=== PATIENT | male | born 1955 | race Caucasian/White ===

== ENCOUNTER → 2016-09-30 | Outpatient (CLI) | payer OTHER | LOC: MRI 09:41 | DX: M47.816 Spondylosis without myelopathy or radiculopathy, lumbar region (principal); M48.06 Spinal stenosis, lumbar region; M54.5 Low back pain ==

== ENCOUNTER → 2018-12-11 | Outpatient (CLI) | payer BC, OTHER | LOC: CAT 07:19 | DX: K80.20 Calculus of gallbladder without cholecystitis without obstruction (principal); K57.30 Diverticulosis of large intestine without perforation or abscess without bleeding; K40.20 Bilateral inguinal hernia, without obstruction or gangrene, not specified as recurrent; K76.0 Fatty (change of) liver, not elsewhere classified; J84.10 Pulmonary fibrosis, unspecified; D18.00 Hemangioma unspecified site; I70.0 Atherosclerosis of aorta; M47.817 Spondylosis without myelopathy or radiculopathy, lumbosacral region; M43.17 Spondylolisthesis, lumbosacral region ==

== ENCOUNTER 2018-12-27 05:33 | Observation (INO) | payer BC, OTHER ==
[~2018-12-27] VITALS: Ht 177.8 cm; Wt 124.7 kg
--- NOTE | ~2018-12-27 | H ---
[facility] [place] [address] HISTORY AND PHYSICAL Name: ABDIEL BALTAZAR Room #: 150-3 [facility]#: [id number] Admission: 12/27/18 ������������������ Attend Phys: Isaiah Brink MD Discharge: ������������������ Date of : 51 Report #: [id number] THIS REPORT FOR: //name// CC: Isaiah Araya MD DATE OF SERVICE: 12/27/2018 PREOPERATIVE DIAGNOSIS: Cholecystitis with cholelithiasis. HISTORY OF PRESENT ILLNESS: The patient is a 63-year-old who has been followed recently by Dr. Araya and he has been found to have liver function elevations. His SGPT has doubled. The patient does complain of pain, but it is on the left side of his abdomen. The pain does come on after eating. The patient recently had episode of pain after eating baked beans which contained mota and molasses. The patient has had history of indigestion for years, been taking omeprazole. In 2013, the patient had an EGD, which showed an ulcer. The patient does complain being full feeling and bloated, history of gas. The patient does have difficulty with spicy and greasy food. He does get diarrhea depending on the type of food that he eats. The patient had a CT performed and his liver did show moderate diffuse hepatic steatosis and the patient does have numerous gallstones. Small bilateral inguinal hernias. Fat containing. He is here for gallbladder surgery. PAST MEDICAL HISTORY: The patient has a history of type 2 diabetes and TIA in 2017. For a brief period of time, he lost the use of his right leg. The patient has hypertension, arthritis. The patient has back spondylolisthesis. MEDICATIONS: Amlodipine 10 mg, aspirin 81 mg, Lipitor 40 mg, TriCor 145 mg, Flonase, metformin, insulin, Prilosec 20 mg, Cialis 5 mg. ALLERGIES: THE PATIENT HAS ALLERGIES TO CODEINE CAUSES GI UPSET. CELEBREX, VIOXX GI INTOLERANCE. PAST SURGICAL HISTORY: Right inguinal hernia repair 1990, hemorrhoidectomy 1990, and umbilical hernia repair in 1997. The patient has had injury of the Achilles tendon, left wrist fracture. FAMILY HISTORY: There is cancer in the family with his parents. They both were smokers. 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 The patient does not smoke. He smoked a little bit when he was much younger. He drink alcohol seldom. REVIEW OF SYSTEMS: The patient has L5 slip disk. The patient has had a history [facility] [address] [place] [address] HISTORY AND PHYSICAL Name: ABDIEL BALTAZAR Room #: 150-3 [facility]..#: [id number] Admission: 12/27/18 ������������������ Attend Phys: Isaiah Brink MD Discharge: ������������������ Date of : 51 Report #: [id number] of bronchitis. The patient denies any chest pain, shortness of breath, muscle weakness or numbness. PHYSICAL EXAMINATION: GENERAL: The patient is moderately obese male. He has stated weight of 275. He is alert and oriented, not in acute distress. HEENT: Sclerae are nonicteric. NECK: Soft and supple, no masses. LUNGS: Clear to auscultation. HEART: Regular rate and rhythm. No murmur or gallop. ABDOMEN: Soft with tenderness in the right upper quadrant. No mass, guarding or rigidity. EXTREMITIES: No cyanosis, clubbing or edema. IMPRESSION: The patient is a 63-year-old who has had abdominal pain, which is on the left side after eating. I believe this is gallbladder related referred pain. It is atypical for it to be on the left side. He does have issues with greasy, spicy foods. The patient does have numerous stones in his gallbladder. Liver looks fatty. The patient's liver function tests also has increased. The pattern is consistent with biliary tract disease. We will see how his liver looks, possibly liver biopsy if there are some changes in the liver. I do recommend that his gallbladder be removed. Laparoscopic cholecystectomy was discussed and recommended. Procedure risks involved including bleeding, infection, common bile duct injury, bile leak was discussed. The patient understands the procedure and wished to proceed. ��������������������������������������������� ���������������������������������������� By: ��������������������������������������������� 1044 1127 Isaiah Brink MD /nt
--- NOTE | ~2018-12-27 | EKG ---
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: JUSTINNG : 1955 Requested By: Isaiah Brink Order Number: [id number] MD: Measurements Intervals [place] Rate: 81 P: 77 W[place]: 110 QRS: 53 QRSD: 78 T: 75 QT: 352 QTc: 409 Interpretive Statements Sinus rhythm Borderline short [place] interval Borderline T wave abnormalities Minimal ST elevation, anterior leads Compared to ECG 09/15/2005 21:03:16 T-wave abnormality now present ST (T wave) deviation now present Sinus bradycardia no longer present [email or web address] ��������������������������������������������� ���������������������������������������� By: ��������������������������������������������� 0729 0729 Epiphany Epiphany, /EPI
--- NOTE | ~2018-12-27 | HC ---
[facility] [place] [address] CONSULTATION Name: ABDIEL BALTAZAR Room #: 359-P [facility] M.R.#: [id number] Admission: 12/27/18 ������������������ Attend Phys: Isaiah Brink MD Discharge: ������������������ Date of : 53 Report #: [id number] THIS REPORT FOR: //name// CC: Isaiah Araya HISTORY OF PRESENT ILLNESS: The patient is a 63-year-old male, I am asked to see postoperatively cholecystectomy. He does not have documented coronary artery disease. He tells me I did a stress test on him approximately 10 years ago. I do not have that record. He has some subtle ST abnormalities postoperatively. This was noted quite some hours ago and 3 or 4 EKGs looked essentially the same with some subtle ST changes in the anterior and lateral leads. There are no significant reciprocal changes. He has no chest pain. He has not had any anginal type symptoms. He is limited in his exercise tolerance because of radiculopathy and he is disabled because of the low back pain and radiculopathy. His home medications have been metformin recently, diabetic couple of years ago; amlodipine; lisinopril; Lipitor 40; TriCor; insulin; Cialis; Prilosec. Previously, he had been on atorvastatin for probably 20 years, he states that was stopped due to his liver function abnormalities. His SGPT had doubled and CT scan showed an incidental finding some what appeared to be a necrotic or certainly diseased gallbladder. Subsequently, it was taken out uneventfully today by Dr. Isaiah Brink. He denies any chest pain tonight. He feels well, he is hemodynamically stable. His laboratory work is relatively unremarkable except for the SGPT. Troponin was not drawn. PAST MEDICAL HISTORY: Positive for the recent cholecystectomy today, hypertension, hypercholesterolemia, some obesity, diabetes for few years, TIA in 2017 without residual, some erectile issues, low back radiculopathy and spondylolisthesis, DJD, hemorrhoidectomy, umbilical hernia repair, still has an umbilical hernia and left wrist fracture. SOCIAL HISTORY: He is . He has stepchildren. 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 He is disabled because of the back. Minimal alcohol, no tobacco. FAMILY HISTORY: Brother had a stent few years ago that was 3 years younger than him. Otherwise, his parents from cancer. They were heavy smokers. He has never smoked. REVIEW OF SYSTEMS: Negative except for some nocturia and some mild erectile issues and as stated above. PHYSICAL EXAMINATION: GENERAL: Pleasant, alert. He denies any real exertional pain except for some abdominal distension due to bowel issues postoperatively. VITAL SIGNS: Blood pressure 140/70, pulse 60s and regular. HEENT: Eyes reveal xanthelasmas. Pharynx is clear. NECK: Shows preserved upstrokes without JVD or bruits. [facility] [address] [place] [address] CONSULTATION Name: ABDIEL BALTAZAR Room #: 359-P [facility]..#: [id number] Admission: 12/27/18 ������������������ Attend Phys: Isaiah Brink MD Discharge: ������������������ Date of : 53 Report #: [id number] LUNGS: Clear anteriorly. CARDIAC: Regular rate and rhythm, S1, S2 distant. ABDOMEN: Distended and slightly tympanitic. There are no significant bowel sounds noted, but there is no rebound. He is not particularly tender, slightly more in the right upper quadrant. EXTREMITIES: Reveal trace of edema. Distal pulses diminished. NEUROLOGIC: Nonfocal. SKIN: Warm and dry without xanthoma or ulcer, mild venous stasis changes are noted. MUSCULOSKELETAL: Generalized arthritic changes with some valgus deformity of the knees. ASSESSMENT: 1. Abnormal EKG without symptoms. No history of documented coronary artery disease. 2. Hypertension. 3. Hypercholesterolemia. 4. Diabetes. 5. Obesity. 6. Status post cholecystectomy. 7. Severe chronic low back pain and radiculopathy. 8. Disabled. RECOMMENDATIONS AND PLAN: Repeat EKG in the morning. We will check troponin in the morning, although there are no changes on this EKG and he is asymptomatic. Certainly, would not be recommending any intervention at this time. He is mostly uncomfortable from his abdominal distention. It would be reasonable we will check lipids and troponin, EKG and echo. I suspect an outpatient stress testing would be indicated here. We will continue to follow with you. He does have this subtly abnormal EKG, but I do not perceive that this is representing a myocardial infarction. Again, the patient is completely asymptomatic and not had any anginal-type complaints, but we do have some risk factors. Thank you for allowing me to assist in the care of this patient. ��������������������������������������������� ���������������������������������������� By: ��������������������������������������������� 2236 0013 Joaquin Figueredo MD, FACC /nt
--- NOTE | ~2018-12-27 | O ---
[facility] [place] [address] OPERATIVE REPORT Name: ABDIEL BALTAZAR Room #: 359-P [facility]#: [id number] Admission: 12/27/18 ������������������ Attend Phys: Isaiah Brink MD Discharge: ������������������ Date of : 53 Report #: [id number] THIS REPORT FOR: //name// CC: Isaiah Araya MD DATE OF SERVICE: 12/27/2018 PREOPERATIVE DIAGNOSIS: Cholecystitis with cholelithiasis, elevated liver function test. POSTOPERATIVE DIAGNOSIS: Cholecystitis with cholelithiasis, elevated liver function test. PROCEDURES PERFORMED: 1. Laparoscopic cholecystectomy with intraoperative cholangiogram. 2. Core needle biopsy of liver. ANESTHESIA: General. SURGEON: Isaiah Brink M.D. COMPLICATIONS: None. ESTIMATED BLOOD LOSS: 5 mL. PROCEDURE NOTE: With the patient under general anesthesia, IV antibiotic was administered. Abdomen was prepped and draped in sterile fashion. The patient had a previous umbilical hernia repair with mesh. There was thinning over this area. I decided to go above this area. A transverse incision was made above the umbilicus. Fascia was identified. Fascia was grasped with hemostats. Fascia was then opened. A 0 Vicryl suture was placed on the fascia. Veress needle was then placed through the peritoneum. Abdominal cavity was insufflated with CO2. After creating pneumoperitoneum, 11 mm trocar was placed into the pneumoperitoneum. No harm to underlying tissue. There was omental adhesion just superior to where the trocar goes in. This was fatty adhesion. There was intestine that was beneath the fatty tissue. Gallbladder was identified. Two 5 mm trocars were placed in the right upper quadrant, another 5 mm trocar was placed in right epigastrium. The gallbladder was lifted over the liver. The gallbladder was elongated. Peritoneum was then dissected free over the cystic duct. The cystic duct was isolated. Common duct was not able to be visualized due to the fat in this area. The liver did have a fatty appearance. No scarring identified. The cystic duct was isolated. A clip was placed in junction of cystic duct to the gallbladder. There appears to have a stone in the proximal neck of the gallbladder. Opening was made in the cystic duct. [facility] [address] [place] [address] OPERATIVE REPORT Name: ABDIEL BALTAZAR Room #: 359-P [facility]..#: [id number] Admission: 12/27/18 ������������������ Attend Phys: Isaiah Brink MD Discharge: ������������������ Date of : 53 Report #: [id number] Cholangiogram catheter was placed. Fluoroscopic cholangiogram was obtained. Common bile duct filled out well. I did not see any filling defect. The cholangiogram catheter was identified in the cystic duct. No harm to the common duct. Catheter was then removed. The proximal cystic duct was then clipped x 2 and then divided. Cystic artery was then found adjacent to this. This was isolated, clipped x 2 proximally and 1 distally and then divided. The gallbladder was then dissected from the liver bed without difficulty. The gallbladder was placed in a specimen bag, retrieved through the 11 mm port site. The gallbladder came out without difficulty. The gallbladder was opened off the field. The gallbladder contained very thick sludgy liquid along with large amount of small blackish-looking stones. The liver bed was checked, hemostasis obtained. Clips were intact. Irrigation was performed. Irrigation was aspirated out. I then decided to go ahead and do a liver biopsy since she does have elevated liver function test and there is fatty changes. This is to rule out inflammation. An 18-gauge Monopty biopsy gun was used. Three separate cores obtained. The liver course were placed on Telfa, then placed in formalin. Surgicel was placed over the biopsy site. Hemostasis obtained with pressure. No bleeding was identified. The CO2 was then evacuated. Trocars were removed. The fascia defect above the umbilicus was closed with 0 PDS, [id number] x 2. I did look with a 5 mm scope at the umbilical area. The fascia was attenuated. A little bit of the mesh was identified, just a little bit of it was visible. There was no adhesion. There was thinning of the wall. No true hernia defect was present. Skin was irrigated. Skin was then closed with 5-0 PDS. Steri-Strip, Band-Aids applied. The patient was awakened and taken to recovery room, tolerated the procedure well. ��������������������������������������������� ���������������������������������������� By: ��������������������������������������������� 31 57 Isaiah Brink MD /desiree
[~2018-12-27 05:33] MED LIST: AMLODIPINE BESY10 MG PO; ASPIR 8181 MG PO; CLARITIN10 M2 PO; FLONASE 0.05%50 MCG NASAL; GLYBURIDE-METF1 EAC1 PO; HUMALOG100 UNIT/1 SUBQ; LANTUS SUBQ; LISINOPRIL20 MG PO; OMEPRAZOLE 20 M20 M1 PO; TADALAFIL5 M1 PO; WIXELA 250-501 EACH INH
[2018-12-27 12:46] LABS: HEMATOCRIT 44.9 % (42.0-52.0); HEMOGLOBIN 15.1 gm/dL (14.0-18.0)
[2018-12-27 12:54] LABS: CALCIUM 8.5 mg/dL (8.5-10.1); CREATININE 1.1 mg/dL (0.7-1.3); POTASSIUM 4.6 mmol/L (3.5-5.1)
[2018-12-27 13:00] VITALS: BP 160/84
[2018-12-27 13:00] LABS: ALBUMIN 3.5 g/dL (3.4-5.0); TOTAL BILIRUBIN 0.6 mg/dL (<0.1-1.0); TOTAL PROTEIN 6.7 g/dL (6.4-8.2)
[2018-12-27 18:26] VITALS: BP 146/70
[2018-12-28 04:45] VITALS: BP 149/91
[2018-12-28 06:47] LABS: HEMATOCRIT 42.4 % (42.0-52.0); HEMOGLOBIN 14.2 gm/dL (14.0-18.0); MCH 28.5 pg (26.0-34.0); MCHC 33.4 g/dL (28.0-37.0); MCV 85.2 fL (80.0-100.0); RBC 4.98 mil/uL (4.50-6.00); RDW 14.1 % (10.5-14.5); WBC 7.4 thou/uL (4.0-11.0)
[2018-12-28 07:01] LABS: ANION GAP 7 mmol/L (7-16); BUN 10 mg/dL (7-18); CALCIUM 7.8 mg/dL (8.5-10.1); CHLORIDE 107 mmol/L (98-107); CHOLESTEROL 199 mg/dL (<200); CO2 28 mmol/L (21-32); CREATININE 1.1 mg/dL (0.7-1.3); GLUCOSE 171 mg/dL (74-106); HDL CHOLESTEROL 29 mg/dL (>40); LDL CHOLESTEROL 138 mg/dL (<100); POTASSIUM 4.1 mmol/L (3.5-5.1); SODIUM 142 mmol/L (136-145); TC:HDL 6.9 Ratio (Not establshd); TRIGLYCERIDE 163 mg/dL (<150); TROPONIN-I <0.06 ng/mL (<0.06); VLDL 33 mg/dL (<40)
[2018-12-28 07:34] VITALS: BP 143/90
--- NOTE | 2018-12-28 07:54 | EKG ---
[place] [address] [facility] [address] [place] [address] ELECTROCARDIOGRAM REPORT Name: ABDIEL BALTAZAR Room #: 359-P 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1955 Requested By: Isaiah Brink Order Number: [id number] MD: Fernando Carlos Measurements Intervals [place] Rate: 82 P: 0 UT: 103 QRS: 51 QRSD: 80 T: 56 QT: 362 QTc: 423 Interpretive Statements Sinus rhythm Short UT interval ST elevation, consider early repolarization Compared to ECG 09/15/2005 21:03:16 Short [place] interval now present ST segment elevation is persistent Electronically Signed On 12-28-2018 7:54:09 CDT by Fernando Carlos [email or web address] ��������������������������������������������� <ELECTRONICALLY SIGNED> ���������������������������������������� By: Fernando Carlos MD, [facility] ��������������������������������������������� 12/28/18 0754 1302 130 Fernando Carlos MD, [facility] /EPI
--- NOTE | 2018-12-28 07:55 | EKG ---
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1955 Requested By: Isaiah Brink Order Number: [id number] MD: Fernando Carlos Measurements Intervals [place] Rate: 80 P: 126 [place]: 110 QRS: 53 QRSD: 78 T: 43 QT: 361 QTc: 417 Interpretive Statements Sinus rhythm Borderline short [place] interval ST elevation, anterolateral leads Compared to ECG 09/15/2005 21:03:16 no significant change was found Electronically Signed On 12-28-2018 7:55:31 CDT by Fernando Carlos [email or web address] ��������������������������������������������� <ELECTRONICALLY SIGNED> ���������������������������������������� By: Fernando Carlos MD, [facility] ��������������������������������������������� 12/28/18 0755 1310 1310 Fernando Carlos MD, [facility] /EPI
--- NOTE | 2018-12-28 07:57 | EKG ---
[address] [employer] [place] [address] ELECTROCARDIOGRAM REPORT Name: ABDIEL BALTAZAR Room #: 359-P [facility].#: [id number] ������������������ Admission: 12/27/18 ������������������ Attend Phys: Isaiah Brink MD Discharge: ������������������ Date of : 51 Report #: [id number] ����������������������������������������������������������������� [id number] THIS REPORT FOR: //name// [facility] Test Date: 2018-12-27 Test Time: 15:48:29 Pat Name: ABDIEL BALTAZAR Department: Room: [facility] Gender: M Placement Assistant: Jozef WIN : 1955 Requested By: Isaiah Brink Order Number: [id number] MD: Fernando Carlos Measurements Intervals [place] Rate: 67 P: 0 CO: 115 QRS: 58 QRSD: 84 T: 36 QT: 385 QTc: 407 Interpretive Statements Sinus rhythm Borderline short [place] interval ST elevation, anterolateral leads Compared to ECG 09/15/2005 21:03:16 No significant change was found Electronically Signed On 12-28-2018 7:56:58 CDT by Fernando Carlos [email or web address] ��������������������������������������������� <ELECTRONICALLY SIGNED> ���������������������������������������� By: Fernando Carlos MD, [facility] ��������������������������������������������� 12/28/18 0756 1548 1548 Fernando Carlos MD, [facility] /EPI
[2018-12-28 08:13] VITALS: BP 153/88
--- NOTE | 2018-12-28 08:29 | EKG ---
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 : 1955 Requested By: Joaquin Figueredo Order Number: [id number] MD: Fernando Carlos Measurements Intervals [place] Rate: 77 P: 113 DC: 119 QRS: 59 QRSD: 82 T: 33 QT: 361 QTc: 409 Interpretive Statements Sinus rhythm ST segment elevation, anterior lateral leads Compared to ECG 09/15/2005 21:03:16 No significant change was found Electronically Signed On 12-28-2018 8:29:12 CDT by Fernando Carlos [email or web address] ��������������������������������������������� <ELECTRONICALLY SIGNED> ���������������������������������������� By: Fernando Carlos MD, [facility] ��������������������������������������������� 12/28/18 0829 44 44 Fernando Carlos MD, [facility] /EPI
--- NOTE | 2018-12-28 08:37 | EKG ---
[place] [address] [address] [facility] [address] [employer] [address] ELECTROCARDIOGRAM REPORT Name: ABDIEL BALTAZAR Room #: 359-P 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1955 Requested By: Joaquin Figueredo Order Number: [id number] MD: Fernando Carlos Measurements Intervals [place] Rate: 81 P: 77 [place]: 110 QRS: 53 QRSD: 78 T: 75 QT: 352 QTc: 409 Interpretive Statements Sinus rhythm Borderline short [place] interval Borderline T wave abnormalities Minimal ST elevation, anterior leads Compared to ECG 09/15/2005 21:03:16 No significant change was found Electronically Signed On 12-28-2018 8:37:07 CDT by Fernando Carlos [email or web address] ��������������������������������������������� <ELECTRONICALLY SIGNED> ���������������������������������������� By: Fernando Carlos MD, [facility] ��������������������������������������������� 12/28/18 0837 0729 8 Fernando Carlos MD, [facility] /EPI
[2018-12-28 11:28] VITALS: BP 141/77
--- NOTE | 2018-12-28 12:06 | 2DMMODE ---
[facility] [place] [address] 2 D/M-MODE ECHOCARDIOGRAM Name: ABDIEL BALTAZAR Room #: 359-P ADM IN ..#: [id number] ������������� Admission: 12/27/18 ������������� Attend Phys: Isaiah Brink MD Discharge: ��� ������������� ��� Date of : 51 Date of Service: 12/28/18 1206 �� Report #: [id number] �������� ��������������������������������������������[id number] THIS REPORT FOR: //name// APPROVED REPORT Study performed: 12/28/2018 08:36:28 EXAM: Comprehensive 2D, Doppler, and color-flow Echocardiogram Patient Location: Bedside Room #: 359 Status: routine BSA: 2.39 HR: 86 bpm BP: 153/88 mmHg Rhythm: NSR Other Information Study Quality: Adequate Risk Factors: Cardiac Risk Factors: HTN, Hyperlipidemia, DM Indications EKG Changes 2D Dimensions IVSd: 14.05 (7-11mm) LVOT Diam: 20.00 (18-24mm) LVDd: 42.43 mm PWd: 11.81 (7-11mm) Ascending Ao: 31.96 (22-36mm) LVDs: 26.48 (25-40mm) Aortic Root: 30.26 mm LV Single Plane 4CH: 56.64 % LV Single Plane 2CH: 51.66 % Biplane EF: 52.8 % Volumes Left Atrial Volume (Systole) Single Plane 4CH: 59.81 mL Single Plane 2CH: 73.22 mL LA ESV Index: 30.00 mL/m2 Aortic Valve AoV Peak Richard.: 1.57 m/s AO Peak Gr.: 9.87 mmHg LVOT Max P.36 mmHg LVOT Max V: 1.04 m/s DC Vmax: 2.06 cm2 [facility] [place] [address] 2 D/M-MODE ECHOCARDIOGRAM Name: ABDIEL BALTAZAR Room #: 359-P [facility].#: [id number] ������������� Admission: 12/27/18 ������������� Attend Phys: Isaiah Brink MD Discharge: ��� ������������� ��� Date of : 51 Date of Service: 12/28/18 1206 �� Report #: [id number] �������� ��������������������������������������������[id number] Mitral Valve E/A Ratio: 1.1 MV Decel. Time: 224.32 ms MV E Max Richard.: 1.08 m/s MV A Richard.: 1.01 m/s MV PHT: 65.05 ms IVRT: 93.43 ms TDI E/Lateral E': 21.60 E/Medial E': 15.43 Medial E' Richard.: 0.07 m/s Lateral E' Richard.: 0.05 m/s Pulmonary Valve PV Peak Richard.: 0.82 m/s PV Peak Gr.: 2.67 mmHg Pulmonary Vein P Vein S: 0.80 m/s P Vein A: 0.32 m/s P Vein D: 0.37 m/s P Vein A Dur.: 96.9 msec P Vein S/D Ratio: 2.16 Tricuspid Valve RAP Estimate: 10.00 mmHg Left Ventricle The left ventricle is normal size. There is normal LV segmental wall motion. Mild concentric left ventricular hypertrophy. The left ventricular systolic function is normal. The left ventricular ejection fraction is within the normal range. LVEF is 55-60%. The left ventricular diastolic function is normal. Right Ventricle The right ventricle is normal size. The right ventricular systolic function is normal. Atria The left atrium size is normal. The right atrium size is normal. Aortic Valve The Aortic valve is sclerotic. No aortic regurgitation is present. There is no aortic valvular stenosis. Mitral Valve There is mitral annular calcification. Trace mitral regurgitation. No [facility] [address] [place] [id number] 2 D/M-MODE ECHOCARDIOGRAM Name: ABDIEL BALTAZAR Room #: 359-P [facility]#: [id number] ������������� Admission: 12/27/18 ������������� Attend Phys: Isaiah Brink MD Discharge: ��� ������������� ��� Date of : 51 Date of Service: 12/28/18 1206 �� Report #: [id number] �������� ��������������������������������������������[id number] evidence of mitral valve stenosis. Tricuspid Valve The tricuspid valve is normal in structure. There is no tricuspid valve regurgitation noted. Pulmonic Valve The pulmonary valve is normal in structure. Trace pulmonic regurgitation. Great Vessels The aortic root is normal in size. IVC is dilated and collapses >50% with inspiration. Pericardium There is no pericardial effusion. <Conclusion> The left ventricle is normal size. LVEF is 55-60%. The Aortic valve is sclerotic. There is mitral annular calcification. Trace mitral regurgitation. The tricuspid valve is normal in structure. The pulmonary valve is normal in structure. Trace pulmonic regurgitation. There is no pericardial effusion. ��������������������������������������������� <ELECTRONICALLY SIGNED> ���������������������������������������� By: Arnie Cuenca MD ��������������������������������������������� 12/28/18 1206 120 05 Arnie Cuenca MD /INF
[2018-12-28] MEDS ORDERED: HYDROCODON-ACE1 EAC7 PO (13:21)
[2018-12-28 13:48] VITALS: BP 141/77
--- NOTE | 2018-12-29 12:05 | PATH ---
[facility] [place] [address] PATHOLOGY RPT PROCEDURE Name: ABDIEL BALTAZAR Room #: 359-P [facility] Henri Diamond#: [id number] ������������������ Admission: 12/27/18 ������������������ Date of : 51 Discharge: 12/28/18 Report #: [id number] Path Case #: [id number] [facility] Accession Number: [id number] . 01 Material submitted: . PART A: gallbladder - GALLBLADDER PART B: liver - LIVER BIOPSY (ELEVATED LFT'S) . 01 Clinical history: . Biopsy, liver (closed), cholecystitis . 02 Diagnosis: A. Gallbladder, cholecystectomy: - Mild chronic cholecystitis. - Cholelithiasis. . B. Liver, needle core biopsy: - Steatohepatitis, mild activity and mild periportal fibrosis. - Nicholas-Doug system, 2/4 grade and 1-2/4 staging. - NAFLD activity score 3/8. - See comment. . 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 02 Comment: Examination shows a liver needle core biopsy tissue with mild mixed macro and microvesicular steatosis with mild hepatocyte ballooning as well as rare poorly-formed Rylee hyaline. Minimal to mild mixed lobular chronic inflammation as well as minimal portal chronic inflammation is identified. Lobular and portal lipogranulomata are present as well. Acidophil bodies are rare. Satellitosis is not identified. The NAFLD activity score is as follows: 30% steatosis with a score of 1, less than 2 foci of lobular inflammation with a score of 1 and mild to few ballooned hepatocytes with a score of 1 (total of 3/8). . Properly controlled special stains are performed on block B1 and show mild periportal fibrosis as well as zone 3 perisinusoidal fibrosis on the trichrome stain. There is no evidence of portal to portal or portal to central vein bridging fibrosis on the stain.Reticulin is distorted by the steatosis. PAS with and without diastase is negative for intracytoplasmic globules in zone 1, and shows rare Kupffer cell macrophages present. Iron stain is negative. . Steatohepatitis can be seen in several clinical settings including situations of insulin resistance, with alcohol use, as an adverse reaction to several medications, with hyperlipidemias, after gastric or small bowel [address] [address] PATHOLOGY RPT PROCEDURE Name: ABDIEL BALTAZAR Room #: 359-P BRE[facility]NA Diamond#: [id number] ������������������ Admission: 12/27/18 ������������������ Date of : 51 Discharge: 12/28/18 Report #: [id number] Path Case #: [id number] resections, and as an idiopathic variant. Please correlate clinically. . 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 02 Electronically signed: . Mima Beckwith MD, Pathologist NPI- [id number] . 01 Gross description: . A. The specimen is received in formalin, labeled "Abdiel Baltazar, gallbladder", is a previously opened gallbladder measuring 10.0 cm in length and 2.5 cm in maximum diameter with a cárdenas-yellow serosa. The cystic duct is patent. The mucosa is cárdenas-brown to green with no cholesterolosis. The wall is 0.1 cm in average thickness. Within the container there are multiple dark black-brown sand-like calculi. Sugar Controller tissue is submitted in A1. . B. The specimen is received in formalin, labeled "Abdiel Baltazar, liver biopsy", are three cárdenas-brown needle cores measuring 1.4, 1.6, and 1.8 cm in length with an average 0.1 cm diameter, entirely submitted in B1-B3. ([facility]; 12/27/2018) SHS/SHS . 02 Pathologist provided ICD-10: K80.10, K75.81, K74.0 . 02 CPT . 841691, 636285, 803554, 382319, 311732, 491711, 098539 Specimen Comment: A courtesy copy of this report has been sent to Specimen Comment: [phone], . Specimen Comment: Report sent to / DR CAMPBELL Performed at: [address], [place], [place] [id number] MD Constantino Petersen MD Phone: [phone] Performed at: [address] [id number] MD Mima Beckwith MD Phone: [phone]
== END 2018-12-28 15:16 | disposition home or self-care (01) ==
LOC: OR 05:33 → TBA 05:33 → OR 09:00 → 3W 17:34 → OR 17:35 → 3W 17:35
PROVIDERS: Internal Medicine Cardiovascular Disease; ADMIT Surgery
DX: K80.40 Calculus of bile duct with cholecystitis, unspecified, without obstruction (principal); R94.5 Abnormal results of liver function studies; I10 Essential (primary) hypertension; E78.00 Pure hypercholesterolemia, unspecified; E66.9 Obesity, unspecified; E11.9 Type 2 diabetes mellitus without complications; Z90.49 Acquired absence of other specified parts of digestive tract; Z86.73 Personal history of transient ischemic attack (TIA), and cerebral infarction without residual deficits; R94.31 Abnormal electrocardiogram [ECG] [EKG]; M54.5 Low back pain; M54.10 Radiculopathy, site unspecified; Z79.82 Long term (current) use of aspirin; Z88.5 Allergy status to narcotic agent; Z88.8 Allergy status to other drugs, medicaments and biological substances
CPT/HCPCS: 10779; 50010; 50101; 50411; 50555; 50558; 51046; 51489; 53307; 53310; 53312; 55245; 55317; 56462; 56525; 56526; 62110; 62900; 65131; 70005

== ENCOUNTER → 2019-11-14 | Outpatient (CLI) | payer BC, OTHER ==
[~2019-11-14] MED LIST changes: +HYDROCODON-ACE1 EAC7 PO
== END ==
LOC: SJCVCIMAG 15:00
DX: R94.31 Abnormal electrocardiogram [ECG] [EKG] (principal); I07.1 Rheumatic tricuspid insufficiency; I11.9 Hypertensive heart disease without heart failure; E11.9 Type 2 diabetes mellitus without complications; R07.89 Other chest pain; Z79.4 Long term (current) use of insulin

== ENCOUNTER → 2019-11-16 | Outpatient (CLI) | payer BC | LOC: SJCVCIMAG 08:26 | DX: R94.31 Abnormal electrocardiogram [ECG] [EKG] (principal); R07.89 Other chest pain; E78.5 Hyperlipidemia, unspecified; I10 Essential (primary) hypertension; E11.9 Type 2 diabetes mellitus without complications; Z79.82 Long term (current) use of aspirin; Z79.899 Other long term (current) drug therapy ==

== ENCOUNTER 2019-11-21 07:35 | Observation (INO) | payer BC ==
[2019-11-21] VITALS (7 sets, daily range): BP systolic 136–168; BP diastolic 72–83
[~2019-11-21] VITALS: Ht 177.8 cm; Wt 140.6 kg
[2019-11-21] MEDS ORDERED: ROSUVASTATIN CA20 MG PO (09:59)
--- NOTE | 2019-11-21 16:54 | NUR ---
ASSUMED CARE POST CARDIAC STENT PLACEMENT TO THE RCA. RIGHT GROIN SIGHT C//D/I IMMOBILIZED 3 HOURS POST HEMOSATIS. A/OX4, RA, ENLARGED PROSTATE REQUIRES STANDING TO VOID PER URINAL. NSR ON TELE. ADMISSION ASSESMENT, HISTORY, EDUCATION COMPLETED. WILL DC TOMORROW PER OBSERVATION ORDERS.
[2019-11-22 00:48] VITALS: BP 160/81
[2019-11-22 04:45] VITALS: BP 138/62
--- NOTE | 2019-11-22 05:06 | NUR ---
ASSUMED PT CARE AT 1900. PT IS ALERT AND ORIENTED WITH NO SIGN OF DISTRESS NOTED IN PT. RIGHT GROIN SITE IS INTACT. NO SIGN OF BRUISING OR BLEEDING OR HEMATOMA. PT IS AMBULATORY. VERBALIZES A HEADACHE. MEDICATION ADMINISTERED. ASSESSMENT COMPLETED AND DOCUMENTED. VITAL SIGNS STABLE. SCHEDULED MEDS ADMINISTERED TO TO PT. CONTINUE TO MONITOR. NO ACUTE EVENTS OVERNIGHT. CONTINUE TO MONITOR. DENIES ANY FURTHER NEEDS AT THIS TIME.
[2019-11-22 06:41] LABS: HEMATOCRIT 44.1 % (42.0-52.0); HEMOGLOBIN 14.7 gm/dL (14.0-18.0); MCH 27.9 pg (26.0-34.0); MCHC 33.2 g/dL (28.0-37.0); RBC 5.25 mil/uL (4.50-6.00); RDW 14.1 % (10.5-14.5); WBC 6.9 thou/uL (4.0-11.0)
[2019-11-22 07:00] LABS: ALBUMIN 3.2 g/dL (3.4-5.0); CALCIUM 8.2 mg/dL (8.5-10.1); CREATININE 1.1 mg/dL (0.7-1.3); POTASSIUM 4.4 mmol/L (3.5-5.1); TOTAL BILIRUBIN 0.6 mg/dL (<0.1-1.0); TOTAL PROTEIN 6.1 g/dL (6.4-8.2); TROPONIN-I 0.06 ng/mL (<0.06)
[2019-11-22 07:48] VITALS: BP 139/75
[2019-11-22] MEDS ORDERED: EFFIENT10 MG PO (08:04)
[2019-11-22] MEDS ORDERED: ASPIRIN325 PO (08:04)
--- NOTE | 2019-11-22 08:27 | EKG ---
[facility] [address] [place] [address] ELECTROCARDIOGRAM REPORT Name: ABDIEL BALTAZAR Room #: 214-P [facility] M.R.#: [id number] Admission: 11/21/19 Attend Phys: Joaquin Figueredo MD, Discharge: Date of : 51 Report #: [id number] THIS REPORT FOR: cc: Jorge Araya,Fernando Sloan MD [facility] THIS REPORT FOR: //name// [facility] Test Date: 2019-11-22 Test Time: 07:18:25 Pat Name: ABDIEL BALTAZAR Department: Room: 214 P Gender: M Windows Consultant: Ramona LUJAN : 1955 Requested By: Joaquin Figueredo Order Number: [id number] MD: Fernando Carlos Measurements Intervals [place] Rate: 86 P: 190 MD: 90 QRS: 53 QRSD: 85 T: 102 QT: 356 QTc: 426 Interpretive Statements Sinus or ectopic atrial rhythm Short MD interval Nonspecific T abnormalities, lateral leads Minimal ST elevation, anterior leads Compared to ECG 12/28/2018 07:29:44 No significant change was found Electronically Signed On 11-22-2019 8:25:43 CDT by Fernando Carlos [email or web address] <ELECTRONICALLY SIGNED> By: Fernando Carlos MD, [facility] 11/22/19824 7 7 Fernando Carlos MD, [facility] /EPI
[2019-11-22 10:34] VITALS: BP 139/75
--- NOTE | 2019-11-22 10:58 | NUR ---
ASSUMED CARE 0700. DENIES SOB, DENIES CHEST PAIN, RIGHT GROIN SIGHT INTACT. 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 DR ALVARADO ROUNDED AND DC PT HOME WITH SELF CARE.REVIEWED DC PAPERWORK AND MEDICAITONS. IV AND TELE REMOVED.
--- NOTE | 2019-11-22 17:18 | CATHLAB ---
[facility] [place] [address] [place] [address] INVASIVE PROCEDURE REPORT Name: ABDIEL BALTAZAR Room #: 214-P [facility] Henri M.RRolly#: [id number] Admission: 11/21/19 Attend Phys: Joaquin Figueredo MD, Discharge: 11/22/19 Date of : 51 Report #: [id number] THIS REPORT FOR: cc: Jorge Araya,Joaquin Woodard MD [facility] ~ APPROVED REPORT Study performed: 11/21/2019 12:00:39 Patient Details Patient Status: Out-Patient Room #: The patient is a 64 year-old male Event Personnel Joaquin Figueredo Winding Lathe Operator, Graciela Zeng RTR, PATENT AGENT Monitor, Kleber Bella RN, Danna Dong RTR Emile Fairchild Dexter RN radiographer technologist Performed Art Access - R femoral artery* Left Heart Cath w/or w/o Coronaries [id number] [facility] w/wo Plasty Single RCA 417023 47749 Initial Mod Sed Same Phys/QHP Gr5y 926346 40498 Mod Sed Same Phys/QHP Ea [id number] Abdominal Peripheral Angio 724286 Indication Positive stress test Procedure Narrative The Right Groin^ was infiltrated with 1% Lidocaine subcutaneous anesthesia. A PINNACLE 6FR Sheath #[id number] sheath was inserted into the RFA^. Coronary angiography was performed using coronary diagnostic catheters. The right coronary system was accessed and visualized with a JR4 catheter. The left coronary system was accessed and visualized with a JL4 catheter. The left ventricle was accessed and visualized with a pigtail catheter. Left ventriculogram was performed in 30 degree projection. An aortogram of the abdominal aorta was performed. Closure device was deployed with a 6 Fr MYNXGRIP 6/7F #[id number]. The patient tolerated the procedure well and there were no complications associated with the procedure. There was no hematoma. Intraoperative Conscious Sedation [address] [address] INVASIVE PROCEDURE REPORT Name: ABDIEL BALTAZAR Room #: 214-P [facility] IN [facility]#: [id number] Admission: 11/21/19 Attend Phys: Joaquin Figueredo, Discharge: 11/22/19 Date of : 51 Report #: [id number] Sedation start time: 12:52 Case end Time: 13:52 Fentanyl 100 mcg Versed 2 mg Fluoro Time: 7.24 minutes Dose: DAP 05626.60 cGycm2 1599 mGy Contrast Type and Amount: Omnipaque 220 ml Hemodynamics The aortic pressure is 148/78 mmHg with a mean of 106 mmHg. The left ventricular pressure is 153/3 mmHg with a mean of mmHg. The left ventricular end diastolic pressure is 22 mmHg. PCI Technique Lesion Percutaneous coronary intervention was performed on the mid right coronary artery. A LAUNCHER 6FR JR 4 #[id number] Guide Catheter was used to engage the ostium. A Luge Wire .014 x 182CM #[id number] Interventional Guidewire was used to cross the lesion. BALLOON DILATION A Balloon catheter Sprinter OTW 2.5 x 15 #[id number] was inserted and inflated up to 6.00atm for 26seconds. Additional Inflation: 12.00atm for 29seconds. PCI Technique Lesion 2 Percutaneous Coronary Intervention was performed on the proximal right coronary artery. A LAUNCHER 6FR JR 4 #069700 Guide Catheter was used to engage the ostium. A Luge Wire .014 x 182CM #[id number] Interventional Guidewire was used to cross the lesion. Balloon Dilation A Balloon catheter Sprinter OTW 2.5 x 15 #[id number] was inserted and inflated up to 14.00atm for 22seconds. Stent Deployment A drug-eluting stent RESOLUTE REJI OTW 3.0 X 38 #[id number] was inserted and inflated up to 14.00atm for 32seconds. Additional Inflation: 16.00atm for 25seconds. Conclusion 1. Successful PTCA stent of a proximal and mid high-grade tandem lesions in the dominant RCA placement of a 3 oh by 38 Reji drug-eluting stent IRAM grade III flow with mild distal disease and dominant vessel. #2 left main moderate size free of disease giving rise to LAD and circumflex. [facility] [address] [place] [address] INVASIVE PROCEDURE REPORT Name: ABDIEL BALTAZAR Room #: 214-P [facility] IN M.R.#: [id number] Admission: 11/21/19 Attend Phys: Joaquin Figueredo, Discharge: 11/22/19 Date of : 51 Report #: [id number] #3 LAD with mild irregularities extends around the apex and said attenuated diffusely diseased vessel at the apex #4 very proximal OM system is large with mild disease the circumflex is diffusely diseased in the AV groove and diffuse distal disease but no indication for intervention. #5 hyperdynamic LV function EF 60 to 65% #6 abdominal aortogram revealing abdominal aorta intact without significant aneurysm. Do not visualize the renal arteries well on this Recommendations and plan: Continue aggressive risk factor modification. Dual antiplatelet therapy initiated to CCU to follow post stent protocol. Hemodynamically stable. <ELECTRONICALLY SIGNED> By: Joaquin Figueredo MD, [facility] 11/22/191715 15 15 Joaquin Figueredo MD, FACC /INF
== END 2019-11-22 11:19 | disposition home or self-care (01) ==
LOC: CATH 07:35 → 2N 16:03
PROVIDERS: ADMIT Internal Medicine Cardiovascular Disease
DX: I25.10 Atherosclerotic heart disease of native coronary artery without angina pectoris (principal); I10 Essential (primary) hypertension; E11.9 Type 2 diabetes mellitus without complications; E78.5 Hyperlipidemia, unspecified